=== PATIENT | male | born 1985 | race Caucasian/White ===

== ENCOUNTER 2021-07-31 12:15 | Outpatient (REF) | payer OTHER, SELFPAY ==
[2021-07-31 12:57] LABS: Influenza A PCR NEGATIVE (Negative); Influenza B PCR NEGATIVE (Negative); Resp Syncy Virus RNA Qual PCR NEGATIVE (Negative); SARS COV2 PCR INHOUSE POSITIVE (Negative)
== END 2021-07-31 12:16 | disposition home or self-care (01) ==
LOC: HO.LNP 12:15
PROVIDERS: Visit Provider Physician Assistant
DX: Z20.822 Contact with and (suspected) exposure to COVID-19 (principal)
CPT/HCPCS: 0241U

== ENCOUNTER 2022-10-07 12:18 | Emergency (ER) | payer OTHER, SELFPAY ==
[2022-10-07 12:58] VITALS: BP 136/88; PULSE 77; RESP 18; TEMP 36.6; O2SAT 99; BMI 31.0
--- NOTE | 2022-10-07 12:58 | ED_ITS ---
HPI - URI/Sore Throat General Chief Complaint: General Medical <KYLIE Lind Last Filed: 10/07/22 13:03> Stated Complaint: throat issue <KYLIE Lind Last Filed: 10/07/22 13:03> Time Seen by Provider: 10/07/22 14:02 <KYLIE Lind Last Filed: 10/07/22 13:03> Source: patient <KYLIE Morales Last Filed: 10/07/22 16:51> Mode of arrival: ambulatory <KYLIE Morales Last Filed: 10/07/22 16:51> Limitations: no limitations <KYLIE Morales Last Filed: 10/07/22 16:51> History of Present Illness HPI Narrative: Patient is a 36 year old assigned male at with no reported medical history presenting to the emergency department today with a lesion on his uvula. Patient states that 3 days ago he was diagnosed with strep throat and started on antibiotics. Patient states that he noticed today that he has a spot on his uvula. Patient states that he does have a history of intermittent cankersores. Patient denies any dizziness, lightheadedness, abdominal pain, nausea, vomiting, fever, chills, blurry vision, double vision, loss of vision, chest pain, difficulty breathing, shortness of breath, back pain, night sweats, pain with urination, increased urinary frequency, increased urinary urgency, blood in his urine or stool, syncope or a near syncopal episode, recent trauma or falls, bowel incontinence, bladder incontinence, bowel retention, bladder retention, or any other complaints at this time. <KYLIE Morales Last Filed: 10/07/22 16:51> Exacerbating factors: nothing <KYLIE Morales Last Filed: 10/07/22 16:51> Relieving factors: nothing <KYLIE Morales Last Filed: 10/07/22 16:51> Associated symptoms: denies other symptoms <KYLIE Morales Last Filed: 10/07/22 16:51> Treatments prior to arrival: none <KYLIE Morales Last Filed: 10/07/22 16:51> Related Data Home Medications: Home Medications Medication Instructions Recorded Confirmed No Known Home Meds 07/31/21 07/31/21 <KYLIE Lind - Last Filed: 10/07/22 13:03> Allergies/Adverse Reactions: Allergies Allergy/AdvReac Type Severity Reaction Status Date / Time No Known Allergies Allergy Verified 10/07/22 13:03 <KYLIE Lind - Last Filed: 10/07/22 13:03> Review of Systems Constitutional: Constitutional: Reports no additional constitutional complaints, Denies chills, Denies fever(s) and Denies night sweats <KYLIE Morales - Last Filed: 10/07/22 16:51> Eyes: Eyes: Reports no additional eye complaints, Denies blurry vision, Denies change in vision, Denies diplopia, Denies eye discharge, Denies loss of vision and Denies eye pain <KYLIE Morales - Last Filed: 10/07/22 16:51> ENT: Denies dizziness <KYLIE Morales - Last Filed: 10/07/22 16:51> Comments: spot on uvula <KYLIE Morales - Last Filed: 10/07/22 16:51> Cardiovascular: Cardiovascular: Reports no additional cardiovascular complaints, Denies chest pain, Denies lightheadedness, Denies Loss of Consci ousness and Denies dyspnea <KYLIE Morales Last Filed: 10/07/22 16:51> Respiratory: Respiratory: Reports no additional respiratory complaints and Denies dyspnea <KYLIE Morales - Last Filed: 10/07/22 16:51> Gastrointestinal: Gastrointestinal: Reports no additional gastrointestinal complaints, Denies abdominal pain, Denies melena, Denies hematochezia, Denies change in bowel habits and Denies change in stool character <KYLIE Morales - Last Filed: 10/07/22 16:51> Genitourinary: Genitourinary: Reports no additional male genitourinary complaints, Denies hematuria, Denies oliguria, Denies difficulty urinating, Denies dysuria, Denies urinary frequency, Denies urinary hesitancy, Denies urinary incontinence and Denies urinary urgency <KYLIE Morales Last Filed: 10/07/22 16:51> Musculoskeletal: Musculoskeletal: Reports no additional musculoskeletal complaints, Denies numbness and Denies tingling <KYLIE Morales - Last Filed: 10/07/22 16:51> Neurologic: Denies dizziness, Denies loss of vision, Denies numbness and Denies tingling <KYLIE Morales - Last Filed: 10/07/22 16:51> Psychiatric: Psychiatric: Reports no additional psychiatric complaints <KYLIE Morales - Last Filed: 10/07/22 16:51> Endocrine: Endocrine: Reports no additional endocrine complaints <KYLIE Morales - Last Filed: 10/07/22 16:51> Hematologic/Lymphatic: Hematologic/Lymphatic: Reports no additional hematologic/lymphatic complaints <KYLIE Morales - Last Filed: 10/07/22 16:51> Allergic/Immunologic: Allergic/Immunologic: Reports no additional allergic/immunologic complaints <KYLIE Morales - Last Filed: 10/07/22 16:51> PMFSH Past Medical History Attestation statement: The following information was validated with the patient. <KYLIE Morales - Last Filed: 10/07/22 16:51> Source: old records reviewed and nursing notes reviewed <KYLIE Morales - Last Filed: 10/07/22 16:51> Social History Social History: Social History Patient Tobacco Use Status: Never used Tobacco Advance Directives: No Advance Directives Information Provided: No <KYLIE Lind - Last Filed: 10/07/22 13:03> Physical Exam Vital Signs: Vital Signs: Last Vital Signs Temp 97.8 F 10/07/22 12:58 Pulse 77 10/07/22 12:58 Resp 18 10/07/22 12:58 BP 136/88 10/07/22 12:58 Pulse Ox 99 10/07/22 12:58 O2 Del Method 10/07/22 12:58 BMI result Body Mass Index 31.0 <KYLIE Lind - Last Filed: 10/07/22 13:03> Vital Signs: Last Vital Signs Temp 97.8 F 10/07/22 12:58 Pulse 77 10/07/22 12:58 Resp 18 10/07/22 12:58 BP 136/88 10/07/22 12:58 Pulse Ox 99 10/07/22 12:58 O2 Del Method 10/07/22 12:58 BMI result Body Mass Index 31.0 <KYLIE Morales - Last Filed: 10/07/22 16:51> Const: General: cooperative, no acute distress, alert and awake <KYLIE Morales - Last Filed: 10/07/22 16:51> Nutritional Appearance: well nourished <Katt Blank SC - Last Filed: 10/07/22 16:51> Orientation/consciousness: patient oriented x3 <Katt Blank SC - Last Filed: 10/07/22 16:51> Limitations: no limitations <Katt Blank SC - Last Filed: 10/07/22 16:51> HEENT: Head: Yes normal to inspection and Yes atraumatic <Katt Blank SC - Last Filed: 10/07/22 16:51> Ears: hearing grossly normal bilaterally and external ears normal <Katt Blank SC - Last Filed: 10/07/22 16:51> General nose exam: Normal external nose present, no nasal discharge noted and no epistaxis <Katt Blank SC - Last Filed: 10/07/22 16:51> Face and sinus: Yes normal facial exam, No abrasion and No laceration <Katt Blank SC - Last Filed: 10/07/22 16:51> Mouth: Normal oral and palatal mucosa present, no drooling and no muffled voice <Katt Blank SC - Last Filed: 10/07/22 16:51> Throat: Yes other (small lesion on uvula) <Katt Blank SC - Last Filed: 10/07/22 16:51> Eyes: General: appearance normal, both eyes and all related structures <KYLIE Morales - Last Filed: 10/07/22 16:51> Periorbital: periorbital findings normal <KYLIE Morales - Last Filed: 10/07/22 16:51> Eyelids: Yes eyelids normal <KYLIE Morales - Last Filed: 10/07/22 16:51> Conjunctivae: conjunctivae normal <Katt Blank SC - Last Filed: 10/07/22 16:51> Pupils: Equal, round and reactive pupils present <Katt Blank PA - Last Filed: 10/07/22 16:51> EOM: EOMs intact bilaterally <Katt Blank PA - Last Filed: 10/07/22 16:51> Neck: Neck: Yes normal visual inspection, Yes full ROM and Yes no lymphadenopathy <Katt Blank PA - Last Filed: 10/07/22 16:51> Chest: Chest palpation & inspection: normal inspection of the chest <Katt Blank PA - Last Filed: 10/07/22 16:51> Resp: Effort & Inspection: normal respiratory effort and able to speak in complete sentences <Katt Blank PA - Last Filed: 10/07/22 16:51> Auscultation: clear to auscultation bilaterally <Katt Blank SC - Last Filed: 10/07/22 16:51> Cardio: Rate: regular rate <Katt Blank PA - Last Filed: 10/07/22 16:51> Rhythm: regular rhythm <Katt Blank PA - Last Filed: 10/07/22 16:51> GI: Inspection: Yes normal to inspection <Katt Blank PA - Last Filed: 10/07/22 16:51> Palpation (GI): Soft to palpation, not firm, nontender and no guarding <Katt Blank PA - Last Filed: 10/07/22 16:51> Neuro: General: patient oriented x3 and moves all extremities <Katt Blank PA - Last Filed: 10/07/22 16:51> Cranial nerves: Yes Equal, round and reactive pupils present <Katt Blank PA - Last Filed: 10/07/22 16:51> Cognition (Neuro): normal cognition <Katt Blank PA - Last Filed: 10/07/22 16:51> Motor exam (neuro): 5/5 motor strength present throughout <Katt Blank PA - Last Filed: 10/07/22 16:51> Sensory Exam: Normal double simultaneous stimulation for sensation <Katt Blank PA - Last Filed: 10/07/22 16:51> Coordination: [id number] test normal <Katt Blank PA - Last Filed: 10/07/22 16:51> Extrem: General: Yes normal to inspection, Yes full ROM and Yes capillary refill normal <KYLIE Morales - Last Filed: 10/07/22 16:51> Psych: Appearance: grossly normal <KYLIE Morales Last Filed: 10/07/22 16:51> Mental Status: mental status grossly normal <KYLIE Morales Last Filed: 10/07/22 16:51> Affect: normal affect <KYLIE Morales Last Filed: 10/07/22 16:51> Attitude: cooperative <KYLIE Morales Last Filed: 10/07/22 16:51> Thought process: Normal thought process present <KYLIE Morlaes Last Filed: 10/07/22 16:51> Thought content: Normal thought content present <KYLIE Morales Last Filed: 10/07/22 16:51> Insight: Good insight present (Psych) <KYLIE Morales Last Filed: 10/07/22 16:51> Course Course Course Narrative: RME-12PM - 36yoM presenting to the ED with c/o of a sore throat x 3-4 days worse today currently on PCN prescribed by PCP x 3 days ago for bacterial pharyngitis confirm with strep swab. Although his uvula became more swollen and more painful therefore he called his PCP and they were concerned for possible abscess therefore they sent him here for further evaluation treatment. He denies any fevers, trouble swallowing or breathing, trismus, changes in voice, abdominal pain or any other symptoms complaints or concerns at this time. was also started on Augmentin for bacterial pharyngitis. Son is also being treated for bacterial pharyngitis. On exam it appears that the patient has a canker sore on the uvula. Tonsils/uvula with exudate. Uvula is midline. No trismus/drooling/stridor. Patient tolerating secretions well. Plan: Rapid strep obtained. Patient to be seen in [facility]. <KYLIE Lind - Last Filed: 10/07/22 13:03> Medications Administered Discontinued Medications Generic Name Dose Route Start Last Admin Trade Name Freq PRN Reason Stop Dose Admin Dexamethasone Sodium Phosphate 10 mg 10/07/22 14:14 10/07/22 14:19 Dexamethasone Sod Phosphate 10 Mg/Ml Vial PO 10/07/22 14:15 10 mg ONCE ONE Administration <KYLIE Lind - Last Filed: 10/07/22 13:03> Medications Administered Discontinued Medications Generic Name Dose Route Start Last Admin Trade Name Shayy PRN Reason Stop Dose Admin Dexamethasone Sodium Phosphate 10 mg 10/07/22 14:14 10/07/22 14:19 Dexamethasone Sod Phosphate 10 Mg/Ml Vial PO 10/07/22 14:15 10 mg ONCE ONE Administration <KYLIE Morales - Last Filed: 10/07/22 16:51> Medical Decision Making Medical Decision Making [facility] Narrative: Patient is a 36 year old assigned male at with no reported medical history presenting to the emergency department today with a lesion on his uvula. Patient's physical exam showed a small lesion on his uvula at the 5 o'clock pos ition. Patient's strep test was positive. I explained my physical exam findings as well as all test results to the patient. I answered all questions asked by the patient. Patient received PO Decadron. I stressed the importance of the patient taking his medication as prescribed. I stressed the importance of the patient following up with his primary care provider. I stressed the importance of the patient returning to the emergency department immediately if his symptoms were to worsen or if he were to develop any dizziness, shortness of breath, difficulty breathing, chest pain, blurry vision, loss of vision, nausea, vomiting, abdominal pain, fever, chills, back pain, or any other complaints. Patient verbalized agreement and understanding with this treatment plan and discharge. <KYLIE Morales - Last Filed: 10/07/22 16:51> Differential Diagnosis Differential Diagnoses: The differential diagnosis associated with the presentation includes <KYLIE Morales - Last Filed: 10/07/22 16:51> strep throat <KYLIE Morales - Last Filed: 10/07/22 16:51> Lab Data [facility] Lab Attestation statement: I reviewed the patient's lab results. <KYLIE Morales - Last Filed: 10/07/22 16:51> Labs: Lab Results 10/07/22 Range/Units 13:06 S. pyogenes GrpA JODI Positive A (Negative) <KYLIE Lind - Last Filed: 10/07/22 13:03> Lab Results 10/07/22 Range/Units 13:06 S. pyogenes GrpA JODI Positive A (Negative) <KYLIE Morales - Last Filed: 10/07/22 16:51> Discharge Plan Discharge Clinical Impression: Acute streptococcal pharyngitis <KYLIE Lind - Last Filed: 10/07/22 13:03> Patient Disposition: Home, Self-Care <KYLIE Lind - Last Filed: 10/07/22 13:03> Instructions: Strep Throat (ED) <KYLIE Lind - Last Filed: 10/07/22 13:03> Additional Instructions: Follow up with your primary care provider. Return to the emergency department immediately if your symptoms worsen or if you develop any dizziness, shortness of breath, difficulty breathing, chest pain, blurry vision, loss of vision, nausea, vomiting, abdominal pain, fever, chills, back pain, or any other complaints. <KYLIE Lind - Last Filed: 10/07/22 13:03> Prescriptions: No Action No Known Home Meds <KYLIE Lind - Last Filed: 10/07/22 13:03> Referrals: Donna Sosa NP [Primary Care Provider] - <KYLIE Lind - Last Filed: 10/07/22 13:03> Interventions: ED Discharge Assessment Last Done: 10/07/22 14:21 <KYLIE Lind - Last Filed: 10/07/22 13:03> Discharge Date/Time: 10/07/22 14:22 <KYLIE Lind - Last Filed: 10/07/22 13:03> Print Language: Turkish <KYLIE Lind - Last Filed: 10/07/22 13:03>
[2022-10-07 13:24] LABS: IDNOW Serial# 6674DD1D; Strep A Nucleic Acid Positive (Negative)
--- OUTSIDE RECORDS SUMMARY | 2022-10-07 13:55 | XMS_ITS | Continuity of Care Document ---
:1985 Author Organization [facility] Address [address] [place] [address]- Care Team Providers Name Role Phone Sheila Donna MCCALL Primary Care Physician Encounter [facility] [place] R [id number] Date(s): 08/03/20 - 08/10/20 [facility] [address] [place] [address]- Encounter Diagnosis Annual physical exam (Discharge Diagnosis) - 08/03/20 GERD (gastroesophageal reflux disease) (Discharge Diagnosis) - 08/03/20 Asthma (Discharge Diagnosis) - 08/04/20 Overweight (Discharge Diagnosis) - 08/05/20 Hepatic steatosis (Discharge Diagnosis) - 08/05/20 Recurrent oral ulcers (Discharge Diagnosis) - 08/08/20 Attending Physician: Not on Staff, Attending MD Allergies, Adverse Reactions, Alerts Substance Reaction Severity Status NKA Active Immunizations Given and Recorded Vaccine Date Status Refusal Reason Influenza Virus Vaccine (oldterm) 05/28/20 Recorded Influenza Virus Vaccine (oldterm)1 06/15/18 Given tetanus-diphtheria toxoids (Td) 07/28/17 Recorded Tet/Diphth/Acel, Pertussis (oldterm) 11/21/11 Given Not Given Vaccine Date Status Refusal Reason Influenza Virus Vaccine (oldterm) 08/10/19 Not Given Patient Refuses pneumococcal 23-valent vaccine 08/10/19 Not Given P atient Refuses 1Admin Note: declined Medications albuterol CFC free 90 mcg/inh inhalation aerosol 2, puffs, Inhalation, Every 4 hours, PRN, NEEDED FOR WHEEZING 15 MINUTES BEFORE EXERCISE, # 3 each, Refills 3, Tot. Refills 3, Maintenance, 12/10/19 10:52:00 EDT, Aerosol, Route to Pharmacy Electronically, [id number], [facility]... Start Date: 12/10/19 Status: OrderedMagic mouth wash Magic mouth wash, See Instructions, # 180 mL, Refills 0, Tot. Refills 0, Maintenance, swish and [id number] mouthwash Q4 hours as needed, 08/09/20 12:47:00 EST, mix 60ml liquid benadryl, 60ml lidocaine and 60ml maalox, Supply, 168, cm, 08/03/20 12:48:0... Start Date: 08/09/20 Status: Ordered Problem List Condition Effective Dates Status Health Status Informant [D]Functional heart murmur(Confirmed) Active Asthma(Confirmed) Active Back pain, chronic(Confirmed) Active GERD (gastroesophageal reflux Active disease)(Confirmed) Irritable bowel syndrome - mixed Active C/D(Confirmed) Sleep apnea, obstructive(Confirmed) Active Overweight(Confirmed) Active Recurrent oral ulcers(Confirmed) Active Hepatic steatosis(Confirmed) Active T12 compression fracture- Active TRAUMATIC(Confirmed) Diagnosis Diagnosis Type Effective Dates Health Clinical Infor mant Status Service Annual physical Discharge 08/03/20 exam Diagnosis GERD Discharge 08/03/20 (gastroesophageal Diagnosis reflux disease) Asthma Discharge 08/04/20 Diagnosis Overweight Discharge 08/05/20 Diagnosis Hepatic steatosis Discharge 08/05/20 Diagnosis Recurrent oral Discharge 08/08/20 ulcers Diagnosis Procedures Procedure Date Related Diagnosis Body Site Status Ultrasound scan of upper abdomen- 03/05/19 Completed Echogenic liver likely representing hepatic steatosis. Possible small or trace right pleural effusion.1 X-ray of lumbosacral spine- Unchanged 09/15/18 Completed chronic compression fracture at the thoracolumbar junction. Minimal degenerative changes. Polysomnogram- AHI:2.8; Baseline oxygen 01/05/18 Completed saturation during sleep: 94.6% Lowest oxygen saturation during sleep: 89.0%2 Echocardiogram- Overall left 08/11/09 Completed ventricular systolic function was normal. Left ventricular EF estimated in the range of 60-65%. There were no left ventricular regional wall motion abnormalities. Left ventricular diastolic function parameters were normal.3 1Echogenic liver likely representing hepatic steatosis. Possible small or trace right pleural effusion.2AHI:2.8; Baseline oxygen saturation during sleep: 94.6% Lowest oxygen saturation during sleep: 89.0%3Overall left ventricular systolic function was normal. Left ventricular EF estimated in the range of60-65%. There were no left ventricular regional wall motion abnormalities. Left ventricular diastolic function parameters were normal. Vital Signs Most recent to oldest [Reference Range]: 1 Height 168.00 cm (08/03/20 12:48 PM) Weight 98.3 kg (08/03/20 12:48 PM) Oxygen Saturation [94-100 %] 99 % (08/03/20 12:48 PM) Pulse Rate [55-90 bpm] 90 bpm (08/03/20 12:48 PM) Body Mass Index [18.5-24.99] 34.83 *>HHI* (08/03/20 12:48 PM) Blood Pressure [90-138/55-84 mm Hg] 122/70 mm Hg (08/03/20 12:48 PM) Temperature [96.8-100.4 DegF] 98.6 DegF (08/03/20 12:48 PM) Blood pressure sites Arm, left (08/03/20 12:48 PM) Social History Social History Type Response Smoking Status Never smoker; Tobacco user i n household: No entered on: 06/17/14 Sex
--- OUTSIDE RECORDS SUMMARY | 2022-10-07 13:55 | XMS_ITS | Continuity of Care Document ---
:1985 Author Organization [facility] Address [address] [place] [id number]- Care Team Providers Name Role Phone Sheila Donna MCCALL Primary Care Physician [place] [facility] [place]20 - 09/14/20 [facility] [address] [address] Attending Physician: Quyen Barrera Admitting Physician: Quyen Barrera Referring Physician: AdmtrQuyen Allergies, Adverse Reactions, Alerts Substance Reaction Severity [...] 10:52:00 EDT, Aerosol, Route to Pharmacy Electronically, [id number], [facility]... Start Date: 12/10/19 Status: Ordered Problem List Condition Effective Dates Status Health Status Informant [D]Functional heart murmur(Confirmed) Active Asthma(Confirmed) Active Back pain, chronic(Confirmed) Active GERD (gastroesophageal reflux Active disease)(Confirmed) Irritable bowel syndrome - mixed Active C/D(Confirmed) Sleep apnea, obstructive(Confirmed) Active Overweight(Confirmed) Active Recurrent oral ulcers(Confirmed) Active Hepatic steatosis(Confirmed) Active T12 compression fracture- Active TRAUMATIC(Confirmed) Social History Social History Type Response Smoking Status Never smoker; Tobacco user i n household: No entered on: 06/17/14 Sex
--- OUTSIDE RECORDS SUMMARY | 2022-10-07 13:55 | XMS_ITS | Continuity of Care Document ---
:1985 Author Organization [facility] Address [address] [place] [address]- Care Team Providers Name Role Phone Zander Muro MD Primary Care Physician Encounter [facility] [place] Date(s): 08/10/19 - 08/17/19 [facility] [address] [place] [address]- [facility] Encounter Diagnosis Arthritis of right knee (Discharge Diagnosis) - 08/10/19 Attending Physician: Zander Muro MD Allergies, Adverse Reactions, Alerts Substance Reaction Severity Status NKA Active Immunizations Given and Recorded Vaccine Date Status Refusal Reason Influenza Virus Vaccine (oldterm)1 06/15/18 Given Tet/Diphth/Acel, Pertussis (oldterm) 11/21/11 Given Not Given Vaccine Date Status Refusal Reason Influenza Virus Vaccine (oldterm) 08/10/19 Not Given Patient Refuses pneumococcal 23-valent vaccine 08/10/19 Not Given P atient Refuses 1Admin Note: declined Problem List Condition Effective Dates Status Health Status Informant [D]Functional heart murmur(Confirmed) Active Asthma(Confirmed) Active Back pain, chronic(Confirmed) Active Irritable bowel syndrome - mixed Active C/D(Confirmed) Plantar Wart(Confirmed) Active T12 compression fracture(Confirmed) Active Diagnosis Diagnosis Type Effective Dates Health Status Clinical In formant Service Arthritis of Discharge 08/10/19 right knee Diagnosis Vital Signs Most recent to oldest [Reference Range]: 1 Height 168.00 cm (08/10/19 10:47 AM) Weight 96.9 kg (08/10/19 10:47 AM) Oxygen Saturation [94-100 %] 99 % (08/10/19 10:47 AM) Pulse Rate [55-90 bpm] 70 bpm (08/10/19 10:47 AM) Body Mass Index [18.5-24.99] 34.33 *>HHI* (08/10/19 10:47 AM) Blood Pressure [90-138/55-84 mm Hg] 124/78 mm Hg (08/10/19 10:47 AM) Temperature [96.8-100.4 DegF] 98.1 DegF (08/10/19 10:47 AM) Mode of Delivery (Oxygen) Room air (08/10/19 10:47 AM) Blood pressure sites Arm, left (08/10/19 10:47 AM) Temperature Route Oral (08/10/19 10:47 AM) Weight Obtained Via Standing scale (08/10/19 10:47 AM) Social History Social History Type Response Smoking Status Never smoker entered on: 04/15/18 Sex
--- OUTSIDE RECORDS SUMMARY | 2022-10-07 13:55 | XMS_ITS | Continuity of Care Document ---
:1985 Author Organization [facility] Address [address] [place] [address]- Care Team Providers Name Role Phone Sheila Donna MCCALL Primary Care Physician Encounter [facility] [place] Date(s): 11/06/20 - 11/13/20 [facility] [address] [place] [address]- Encounter Diagnosis Allergic rhinitis (Discharge Diagnosis) - 11/06/20 Carpal tunnel syndrome, left (Discharge Diagnosis) - 11/06/20 Rectal pressure (Discharge Diagnosis) - 11/09/20 Attending Physician: Not on Staff, Attending MD [...] 10:52:00 EDT, Aerosol, Route to Pharmacy Electronically, [id number], [facility]... Start Date: 12/10/19 Status: OrderedMagic mouth wash Magic mouth wash, See Instructions, # 180 mL, Refills 0, Tot. Refills 0, Maintenance, swish and [id number] mouthwash Q4 hours as needed, 10/30/20 11:08:00 EDT, mix 60ml liquid benadryl, 60ml lidocaine and 60ml maalox, Supply, 168, cm, 10/06/20 9:28:00... Start Date: 10/30/20 Status: Ordered Problem List Condition Effective Dates Status Health Status Informant [D]Functional heart murmur(Confirmed) Active Allergic rhinitis(Confirmed) Active Asthma(Confirmed) Active Back pain, chronic(Confirmed) Active Carpal tunnel syndrome, Active left(Confirmed) GERD (gastroesophageal reflux Active disease)(Confirmed) Irritable bowel syndrome - mixed Active C/D(Confirmed) Neurogenic thoracic outlet syndrome of Active left brachial plexus(Confirmed) Sleep apnea, obstructive(Confirmed) Active Overweight(Confirmed) Active Recurrent oral ulcers(Confirmed) Active Hepatic steatosis(Confirmed) Active T12 compression fracture- Active TRAUMATIC(Confirmed) Diagnosis Diagnosis Type Effective Dates Health Status Clinical In formant Service Allergic Discharge 11/06/20 rhinitis Diagnosis Carpal tunnel Discharge 11/06/20 syndrome, left Diagnosis Rectal pressure Discharge 11/09/20 Diagnosis Vital Signs Most recent to oldest [Reference Range]: 1 Height 168.00 cm (11/06/20 11:02 AM) Social History Social History Type Response Smoking Status Never smoker; Tobacco user i n household: No entered on: 06/17/14 Sex
--- OUTSIDE RECORDS SUMMARY | 2022-10-07 13:55 | XMS_ITS | Continuity of Care Document ---
:1985 Author Organization [facility] Address [address] [place] [address]- Care Team Providers Name Role Phone Sheila STEFANY, Donna Boswell Primary Care Physician [place] [facility] [place] 08/28/20 - 10/04/20 [facility] [address] [place] [id number] Attending Physician: Neha Merchant MD Admitting Physician: Neha Merchant MD Referring Physician: Annmarie Paredes MD Allergies, Adverse Reactions, Alerts Substance Reaction [...] 10:52:00 EDT, Aerosol, Route to Pharmacy Electronically, [id number], [facility] Start Date: 12/10/19 Status: Ordered Problem [...]
--- OUTSIDE RECORDS SUMMARY | 2022-10-07 13:55 | XMS_ITS | Continuity of Care Document ---
:1985 Author Organization [facility] Address [address] [place] [address]- Care Team Providers Name Role Phone Sheila Donna MCCALL Primary Care Physician [place] [facility] [place](s[place] 08/25/20 - 09/24/20 [facility] [address] [place] [id number] Allergies, Adverse Reactions, Alerts Substance Reaction Severity [...] 10:52:00 EDT, Aerosol, Route to Pharmacy Electronically, [id number], [facility]... Start Date: 12/10/19 Status: Ordered Problem [...]
--- OUTSIDE RECORDS SUMMARY | 2022-10-07 13:55 | XMS_ITS | Continuity of Care Document ---
:1985 Author Organization [facility] Address [address] [place] [address]- Care Team Providers Name Role Phone Zander Muro MD Primary Care Physician Encounter [facility] Date(s): 08/10/19 - 08/17/[address] [address]- [facility] Attending Physician: Zander Muro MD Allergies, Adverse [...] Plantar Wart(Confirmed) Active T12 compression fracture(Confirmed) Active Social History Social History Type Response Smoking Status Never smoker entered on: 04/15/18 Sex
--- OUTSIDE RECORDS SUMMARY | 2022-10-07 13:55 | XMS_ITS | Continuity of Care Document ---
:1985 Author Organization [facility] Address [address] [place] [address]- Care Team Providers Name Role Phone Sheila Donna MCCALL Primary Care Physician [place] [facility] [place]20 - 09/24/20 [facility] [address] [place] [id number] Allergies, Adverse Reactions, Alerts Substance Reaction Severity [...] 10:52:00 EDT, Aerosol, Route to Pharmacy Electronically, [id number], [facility]... Start Date: 12/10/19 Status: Ordered Problem [...]
--- OUTSIDE RECORDS SUMMARY | 2022-10-07 13:55 | XMS_ITS | Continuity of Care Document ---
:1985 Author Organization [facility] Address [address] [place] [address]- Care Team Providers Name Role Phone Sheila Donna MCCALL Primary Care Physician [place] [facility] [place] 09/28/20 [facility] [address] [place] [id number] Allergies, Adverse Reactions, Alerts Substance Reaction [...] 10:52:00 EDT, Aerosol, Route to Pharmacy Electronically, [id number], [facility]... Start Date: 12/10/19 Status: Ordered Problem [...]
--- OUTSIDE RECORDS SUMMARY | 2022-10-07 13:55 | XMS_ITS | Continuity of Care Document ---
:1985 Author Organization [facility] Address [address] [place] [address]- Care Team Providers Name Role Phone Sheila Donna MCCALL Primary Care Physician [place] [facility] [place] 11/06/20 - 12/06/20 [facility] [address] [place] [address]- Attending Physician: Quyen Barrera Admitting Physician: Admtr, Quyen Referring Physician: Admtr, Ar8 Allergies, Adverse Reactions, Alerts Substance Reaction Severity [...] 10:52:00 EDT, Aerosol, Route to Pharmacy Electronically, [id number], [facility]... Start Date: 12/10/19 Status: OrderedMagic mouth wash Magic mouth wash, See Instructions, # 180 mL, Refills 3, Tot. Refills 3, Maintenance, swish and [id number] mouthwash Q4 hours as needed, 11/20/20 12:57:00 EDT, mix 60ml liquid benadryl, 60ml lidocaine and 60ml maalox, Supply, 168, cm, 11/06/20 11:02:0... Start Date: 11/20/20 Status: Ordered Problem List Condition Effective Dates [...]
--- OUTSIDE RECORDS SUMMARY | 2022-10-07 13:55 | XMS_ITS | Continuity of Care Document ---
:1985 Author Organization [facility] [place] Address [address] [place] [address]- Care Team Providers Name Role Phone Donna Sosa NP Primary Care Physician Encounter [facility] [place] Date(s): 05/09/21 - 09/06/21 [facility] [place] [address] [place] [address]- Encounter Diagnosis Annual physical exam (Discharge Diagnosis) - 08/06/21 Overweight (Discharge Diagnosis) - 08/06/21 Sleep apnea, obstructive (Discharge Diagnosis) - 08/06/21 GERD (gastroesophageal reflux disease) (Discharge Diagnosis) - 08/06/21 Hepatic steatosis (Discharge Diagnosis) - 08/06/21 Recurrent oral herpes simplex (Discharge Diagnosis) - 08/06/21 Asthma (Discharge Diagnosis) - 08/06/21 Attending Physician: Donna Sosa NP Allergies, Adverse Reactions, Alerts No Known Allergies Immunizations Given and Recorded Vaccine Date Status Refusal Reason SARS-CoV-2 (COVID-19) mRNA-1273 vaccine 03/15/21 Recorded SARS-CoV-2 (COVID-19) mRNA-1273 vaccine 02/15/21 Recorded Influenza Virus Vaccine (oldterm) 05/28/20 Recorded Influenza Virus Vaccine (oldterm)1 06/15/18 Given influenza virus vaccine, inactivated 05/10/20 Recorded tetanus-diphtheria toxoids (Td) 07/28/17 Recorded Tet/Diphth/Acel, Pertussis [...] 10:52:00 EDT, Aerosol, Route to Pharmacy Electronically, [id number], [facility]... Start Date: 12/10/19 Status: OrderedMagic mouth wash Magic mouth wash, See Instructions, # 180 mL, Refills 3, Tot. Refills 3, Maintenance, swish and [id number] mouthwash Q4 hours as needed, 11/20/20 12:57:00 [...] apnea, obstructive(Confirmed) Active Overweight(Confirmed) Active Recurrent oral herpes Active simplex(Confirmed) Hepatic steatosis(Confirmed) Active T12 compression fracture- Active TRAUMATIC(Confirmed) Diagnosis Diagnosis Type Effective Dates Health Clinical Infor mant Status Service Annual physical Discharge 08/06/21 exam Diagnosis Overweight Discharge 08/06/21 Diagnosis Sleep apnea, Discharge 08/06/21 obstructive Diagnosis GERD Discharge 08/06/21 (gastroesophageal Diagnosis reflux disease) Hepatic steatosis Discharge 08/06/21 Diagnosis Recurrent oral Discharge 08/06/21 herpes simplex Diagnosis Asthma Discharge 08/06/21 Diagnosis Social History Social History Type Response Smoking Status Never smoker; Tobacco user i n household: No entered on: 06/17/14 Sex
--- OUTSIDE RECORDS SUMMARY | 2022-10-07 13:55 | XMS_ITS | Continuity of Care Document ---
:1985 Author Organization [facility] Address [address] [place] [address]- Care Team Providers Name Role Phone Zander Muro MD Primary Care Physician Encounter 10/07/19 - 10/14/[address] [address]- [facility] Attending Physician: Not on Staff, Attending MD Referring Physician: Not on Staff, Referring MD Allergies, Adverse Reactions, Alerts Substance Reaction [...]
--- OUTSIDE RECORDS SUMMARY | 2022-10-07 13:55 | XMS_ITS | Continuity of Care Document ---
:1985 Author Organization [facility] [place] Address [address] [place] [address]- Care Team Providers Name Role Phone Sheila SENIOR PENSIONS ADMINISTRATORDonna Primary Care Physician Encounter [facility] [place] Date(s): 01/17/22 - 02/16/22 [facility] [place] [address] [place] [address]- Allergies, Adverse Reactions, Alerts No Known Allergies [...] 10:52:00 EDT, Aerosol, Route to Pharmacy Electronically, [id number], [facility]... Start Date: 12/10/19 Status: OrderedMagic mouth wash Magic mouth wash, See Instructions, # 180 mL, Refills 3, Tot. Refills 3, Maintenance, swish and [id number] mouthwash Q4 hours as needed, 11/20/20 12:57:00 EDT, mix 60ml liquid benadryl, 60ml lidocaine and 60ml maalox, Supply, 168, cm, 11/06/20 11:02:0... Start Date: 11/20/20 Status: Orderedomeprazole 40 mg oral enteric coated capsule 1 capsule = 40 mg, By Mouth, Daily, # 30 capsule, 3 Refills, Maintenance, 01/21/22 11:06:00 EDT, EC Capsule, [id number], Partial fill upon patient request if the prescription is for a schedule II opioid drug., 168, cm, 01/21/22 10:49:00 EDT, H... 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
--- OUTSIDE RECORDS SUMMARY | 2022-10-07 13:55 | XMS_ITS | Continuity of Care Document ---
:1985 Author Organization [facility] Address [address] [place] [address]- Care Team Providers Name Role Phone Sheila Donna MCCALL Primary Care Physician Encounter [facility] Date(s): 08/04/20 - 09/03/20 [facility] [address] [place] [address]- Allergies, Adverse Reactions, Alerts Substance Reaction Severity [...] 10:52:00 EDT, Aerosol, Route to Pharmacy Electronically, [id number], [facility]... Start Date: 12/10/19 Status: OrderedValtrex 1 gm oral tablet 1 tablet = 1 Gm, By Mouth, 2 times a day, for 7 days, # 14 tablet, 0 Refills, Acute 09/07/20 9:25:00EST, 08/31/20 9:25:00 EST, Tablet, [id number], 168, cm, 02/04/21 8:43:00 EST, Height Start Date: 08/31/20 Stop Date: 09/07/20 Status: Ordered Problem List Condition Effective Dates [...]
--- OUTSIDE RECORDS SUMMARY | 2022-10-07 13:55 | XMS_ITS | Continuity of Care Document ---
:1985 Author Organization [facility] Address [address] [place] [address]- Care Team Providers Name Role Phone Donna Sosa NP Primary Care Physician En[place] [facility] [place]s): 08/25/20 - 09/01/20 [facility] [address] [place] [id number] Attending Physician: Annmarie Paredes MD Admitting Physician: Annmarie Paredes MD Referring Physician: Donna Sosa NP Allergies, Adverse Reactions, Alerts Substance Reaction Severity [...] 10:52:00 EDT, Aerosol, Route to Pharmacy Electronically, [id number], [facility]... Start Date: 12/10/19 Status: OrderedValtrex 1 gm oral tablet 1 tablet = 1 Gm, By Mouth, 2 times a day, for 7 days, # 14 tablet, 0 Refills, Acute 09/07/20 9:25:00EST, 08/31/20 9:25:00 EST, Tablet, [id number], 168, cm, 08/31/20 8:43:00 EST, Height Start Date: 08/31/20 Stop [...]
--- OUTSIDE RECORDS SUMMARY | 2022-10-07 13:55 | XMS_ITS | Continuity of Care Document ---
:1985 Author Organization [facility] Address [address] [place] [address]- Care Team Providers Name Role Phone Zander Muro MD Primary Care Physician Encounter [facility] Date(s): 07/13/19 - 07/23/19 [facility] [address] [place] [address]- [facility] Attending Physician: Quyen Barrera Admitting Physician: Quyen Barrera Referring Physician: AdmtrQuyen Allergies, Adverse Reactions, Alerts Substance Reaction Severity Status NKA Active Immunizations Given and Recorded Vaccine Date Status Refusal Reason Influenza Virus Vaccine (oldterm)1 06/15/18 Given Tet/Diphth/Acel, Pertussis (oldterm) 11/21/11 Given 1Admin Note: declined Problem List Condition Effective Dates Status Health Status Informant [D]Functional heart murmur(Confirmed) Active Asthma(Confirmed) Active Back pain, chronic(Confirmed) Active Irritable bowel syndrome - mixed Active C/D(Confirmed) Plantar Wart(Confirmed) Active T12 compression fracture(Confirmed) Active Social History Social History Type Response Smoking Status Never smoker entered on: 04/15/18 Sex
--- OUTSIDE RECORDS SUMMARY | 2022-10-07 13:55 | XMS_ITS | Continuity of Care Document ---
:1985 Author Organization [facility] Address [address] [place] [address]- Care Team Providers Name Role Phone Bhaskar VILA, Zander Santana Primary Care Physician Encounter [facility] Date(s): 07/13/19 - 07/20/19 [facility] [address] [place] [address]- [facility] Encounter Diagnosis Great toe pain (Discharge Diagnosis) - 07/13/19 Right knee pain (Discharge Diagnosis) - 07/13/19 Attending Physician: Misha Ortega MD Allergies, Adverse Reactions, Alerts Substance Reaction Severity Status NKA Active Immunizations Given and Recorded Vaccine Date Status Refusal Reason Influenza Virus Vaccine (oldterm)1 06/15/18 Given Tet/Diphth/Acel, Pertussis (oldterm) 11/21/11 Given 1Admin Note: declined Medications No Known Medications Problem List Condition Effective Dates Status Health Status Informant [D]Functional heart murmur(Confirmed) Active Asthma(Confirmed) Active Back pain, chronic(Confirmed) Active Irritable bowel syndrome - mixed Active C/D(Confirmed) Plantar Wart(Confirmed) Active T12 compression fracture(Confirmed) Active Diagnosis Diagnosis Type Effective Dates Health Status Clinical In formant Service Great toe pain Discharge 07/13/19 Diagnosis Right knee pain Discharge 07/13/19 Diagnosis Vital Signs Most recent to oldest [Reference Range]: 1 Height 168.00 cm (07/13/19 11:38 AM) Weight 97 kg (07/13/19 11:38 AM) Oxygen Saturation [94-100 %] 98 % (07/13/19 11:38 AM) Pulse Rate [55-90 bpm] 80 bpm (07/13/19 11:38 AM) Body Mass Index [18.5-24.99] 34.37 *>HHI* (07/13/19 11:38 AM) Blood Pressure [90-138/55-84 mm Hg] 122/68 mm Hg (07/13/19 11:38 AM) Respiratory Rate [16-30 br/min] 18 br/min (07/13/19 11:38 AM) Temperature [96.8-100.4 DegF] 98.0 DegF (07/13/19 11:38 AM) Mode of Delivery (Oxygen) Room air (07/13/19 11:38 AM) Blood pressure sites Arm, left (07/13/19 11:38 AM) Temperature Route Temporal (07/13/19 11:38 AM) Weight Obtained Via Standing scale (07/13/19 11:38 AM) Social History Social History Type Response Smoking Status Never smoker entered on: 04/15/18 Sex
--- OUTSIDE RECORDS SUMMARY | 2022-10-07 13:55 | XMS_ITS | Continuity of Care Document ---
:1985 Author Organization [facility] Address [address] [place] [address]- Care Team Providers Name Role Phone Sheila Donna MCCALL Primary Care Physician Encounter [facility] [place] Date(s): 10/17/20 - 11/16/20 [facility] [address] [place] [address] Allergies, Adverse Reactions, Alerts Substance Reaction Severity [...] 10:52:00 EDT, Aerosol, Route to Pharmacy Electronically, [id number], [facility]... Start Date: 12/10/19 Status: OrderedMagic mouth wash Magic mouth wash, See Instructions, # 180 mL, Refills 0, Tot. Refills 0, Maintenance, swish and [id number] mouthwash Q4 hours as needed, 10/30/20 11:08:00 [...]
--- OUTSIDE RECORDS SUMMARY | 2022-10-07 13:55 | XMS_ITS | Continuity of Care Document ---
:1985 Author Organization [facility] Address [address] [place] [address]- Care Team Providers Name Role Phone Sheila Donna MCCALL Primary Care Physician Encounter [facility] Date(s): 10/27/20 - 11/26/20 [facility] [address] [place] [address]- Allergies, Adverse Reactions, Alerts Substance Reaction Severity [...] 10:52:00 EDT, Aerosol, Route to Pharmacy Electronically, [id number], [facility]... Start Date: 12/10/19 Status: OrderedMagic mouth wash Magic mouth wash, See Instructions, # 180 mL, Refills 3, Tot. Refills 3, Maintenance, swish and retq42fo mouthwash Q4 hours as needed, 11/20/20 12:57:00 [...]
--- OUTSIDE RECORDS SUMMARY | 2022-10-07 13:55 | XMS_ITS | Continuity of Care Document ---
:[address] [facility] Address [address] [place] [address]- Care Team Providers Name Role Phone Sheila LYE MACHINE OPERATORDonna Primary Care Physician Encounter [facility] [place] Date(s): 01/21/22 - 01/28/22 [facility] [address] [place] [address]- Encounter Diagnosis Palpitations (Discharge Diagnosis) - 01/21/22 GERD (gastroesophageal reflux disease) (Discharge Diagnosis) - 01/21/22 Neurogenic thoracic outlet syndrome of left brachial plexus (Discharge Diagnosis) - 01/21/22 Attending Physician: Maricel Camejo Allergies, Adverse Reactions, Alerts No Known Allergies [...] 10:52:00 EDT, Aerosol, Route to Pharmacy Electronically, [id number], [facility]... Start Date: 12/10/19 Status: OrderedMagic mouth wash Magic mouth wash, See Instructions, # 180 mL, Refills 3, Tot. Refills 3, Maintenance, swish and [id number] mouthwash Q4 hours as needed, 11/20/20 12:57:00 EDT, mix 60ml liquid benadryl, 60ml lidocaine and 60ml maalox, Supply, 168, cm, 11/06/20 11:02:0... Start Date: 11/20/20 Status: Orderedomeprazole 40 mg oral enteric coated capsule 1 capsule = 40 mg, By Mouth, Daily, # 30 capsule, 3 Refills, Maintenance, 01/21/22 11:06:00 EDT, EC Capsule, [id number], Partial fill upon patient request if the [...] Dates Health Clinical Infor mant Status Service Palpitations Discharge 01/21/22 Diagnosis GERD Discharge 01/21/22 (gastroesophageal Diagnosis reflux disease) Neurogenic thoracic Discharge 01/21/22 outlet syndrome of Diagnosis left brachial plexus Vital Signs Most recent to oldest [Reference Range]: 1 Height 168.00 cm (01/21/22 10:49 AM) Weight 98.7 kg (01/21/22 10:49 AM) Oxygen Saturation [94-100 %] 98 % (01/21/22 10:49 AM) Pulse Rate [55-90 bpm] 69 bpm (01/21/22 10:49 AM) Body Mass Index [18.5-24.99] 34.97 *>HHI* (01/21/22 10:49 AM) Blood Pressure [90-138/55-84 mm Hg] 123/73 mm Hg (01/21/22 10:49 AM) Blood pressure sites Arm, left (01/21/22 10:49 AM) Temperature Route Temporal (01/21/22 10:49 AM) Weight Obtained Via Standing scale (01/21/22 10:49 AM) Social History Social History Type Response Smoking Status Never smoker; Tobacco user i n household: No entered on: 06/17/14 Sex
--- OUTSIDE RECORDS SUMMARY | 2022-10-07 13:55 | XMS_ITS | Continuity of Care Document ---
:1985 Author Organization [facility] Adult Address [address] [place] [address]- Care Team Providers Name Role Phone Sheila Donna MCCALL Primary Care Physician Encounter [facility] Date(s): 06/15/20 - 07/15/20 [facility] [address] [place] [address]- Allergies, Adverse Reactions, Alerts Substance Reaction Severity [...] 10:52:00 EDT, Aerosol, Route to Pharmacy Electronically, [id number], [facility]... Start Date: 12/10/19 Status: Ordered Problem List Condition Effective Dates Status Health Status Informant [D]Functional heart murmur(Confirmed) Active Asthma(Confirmed) Active Back pain, chronic(Confirmed) Active Irritable bowel syndrome - mixed Active C/D(Confirmed) Plantar Wart(Confirmed) Active T12 compression fracture(Confirmed) Active Social History Social History Type Response Smoking Status Never smoker entered on: 04/15/18 Sex
--- OUTSIDE RECORDS SUMMARY | 2022-10-07 13:55 | XMS_ITS | Continuity of Care Document ---
:1985 Author Organization [facility] Address [address] [place] [address]- Care Team Providers Name Role Phone Bhaskar VILA, Zander Santana Primary Care Physician Encounter [facility] [place] Date(s): 05/08/20 - 05/15/20 [facility] [address] [place] [address]- [facility] Attending Physician: Glen VILA, Sherif Aguilar Allergies, Adverse Reactions, Alerts Substance Reaction Severity [...] 10:52:00 EDT, Aerosol, Route to Pharmacy Electronically, [id number], [facility]... Start Date: 12/10/19 Status: Ordered Problem List Condition Effective Dates Status Health Status Informant [D]Functional heart murmur(Confirmed) Active Asthma(Confirmed) Active Back pain, chronic(Confirmed) Active Irritable bowel syndrome - mixed Active C/D(Confirmed) Plantar Wart(Confirmed) Active T12 compression fracture(Confirmed) Active Vital Signs Most recent to oldest [Reference Range]: 1 Height 168.00 cm (05/08/20 2:34 PM) Social History Social History Type Response Smoking Status Never smoker entered on: 04/15/18 Sex
--- OUTSIDE RECORDS SUMMARY | 2022-10-07 13:56 | XMS_ITS | Continuity of Care Document ---
:1985 Author Organization [facility] Address [address] [place] [address]- Care Team Providers Name Role Phone Sheila Donna MCCALL Primary Care Physician Encounter [facility] [place] Date(s): 07/24/21 - 08/23/21 [facility] [address] [place] [address]- Allergies, Adverse Reactions, Alerts No Known Allergies [...] 10:52:00 EDT, Aerosol, Route to Pharmacy Electronically, [id number], [facility]... Start Date: 12/10/19 Status: OrderedMagic mouth wash Magic mouth wash, See Instructions, # 180 mL, Refills 3, Tot. Refills 3, Maintenance, swish and [id number] mouthwash Q4 hours as needed, 11/20/20 12:57:00 [...]
--- OUTSIDE RECORDS SUMMARY | 2022-10-07 13:56 | XMS_ITS | Continuity of Care Document ---
:1985 Author Organization [facility] Address [address] [place] [address]- Care Team Providers Name Role Phone Sheila Donna MCCALL Primary Care Physician Encounter [facility] Date(s): 10/11/20 - 11/10/20 [facility] [address] [place] [id number] Allergies, Adverse Reactions, Alerts Substance Reaction [...] 10:52:00 EDT, Aerosol, Route to Pharmacy Electronically, [id number], [facility]... Start Date: 12/10/19 Status: OrderedMagic mouth wash Magic mouth wash, See Instructions, # 180 mL, Refills 0, Tot. Refills 0, Maintenance, swish and [id number] mouthwash Q4 hours as needed, 10/30/20 11:08:00 [...]
--- OUTSIDE RECORDS SUMMARY | 2022-10-07 13:56 | XMS_ITS | Continuity of Care Document ---
:1985 Author Organization [facility] Address [address] [place] [address]- Care Team Providers Name Role Phone Zander Muro MD Primary Care Physician Encounter [facility] [place] Date(s): 12/06/19 - 12/13/19 [facility] [address] [place] [address]- [facility] Encounter Diagnosis Exposure to COVID-19 virus (Discharge Diagnosis) - 12/06/19 Attending Physician: Zander Muro MD Allergies, Adverse [...] 10:52:00 EDT, Aerosol, Route to Pharmacy Electronically, [id number], [facility]... Start Date: 12/10/19 Status: Ordered Problem List Condition Effective Dates Status Health Status Informant [D]Functional heart murmur(Confirmed) Active Asthma(Confirmed) Active Back pain, chronic(Confirmed) Active Irritable bowel syndrome - mixed Active C/D(Confirmed) Plantar Wart(Confirmed) Active T12 compression fracture(Confirmed) Active Diagnosis Diagnosis Type Effective Dates Health Status Clinical In formant Service Exposure to Discharge 12/06/19 COVID-19 virus Diagnosis Social History Social History Type Response Smoking Status Never smoker entered on: 04/15/18 Sex
--- OUTSIDE RECORDS SUMMARY | 2022-10-07 13:56 | XMS_ITS | Continuity of Care Document ---
:1985 Author Organization [facility] Address [address] [place] [address]- Care Team Providers Name Role Phone Donna Sosa NP Primary Care Physician [place] [facility] [place] 03[place]/21 [facility] [address] [place] [address]- Attending Physician: Nicanor Sagastume MD Admitting Physician: Nicanor Sagastume MD Referring Physician: Donna Sosa NP Allergies, Adverse Reactions, Alerts Substance Reaction Severity Status NKA Active Immunizations Given and Recorded Vaccine Date Status Refusal Reason SARS-CoV-2 (COVID-19) mRNA-1273 vaccine 02/15/21 Recorded Influenza [...] 10:52:00 EDT, Aerosol, Route to Pharmacy Electronically, [id number], [facility] Start Date: 12/10/19 Status: OrderedMagic mouth wash Magic mouth wash, See Instructions, # 180 mL, Refills 3, Tot. Refills 3, Maintenance, swish and [id number] mouthwash Q4 hours as needed, 11/20/20 12:57:00 [...]
--- OUTSIDE RECORDS SUMMARY | 2022-10-07 13:56 | XMS_ITS | Continuity of Care Document ---
:1985 Author Organization [facility] Address [address] [place] [address]- Care Team Providers Name Role Phone Donna Sosa NP Primary Care Physician [place] [facility] [place] 04/06/21 - 04/13/21 [facility] [address] [place] [address]- Attending Physician: Nicanor Sagastume MD Admitting Physician: [...] 10:52:00 EDT, Aerosol, Route to Pharmacy Electronically, [id number], [facility] Start Date: 12/10/19 Status: OrderedMagic mouth wash Magic mouth wash, See Instructions, # 180 mL, Refills 3, Tot. Refills 3, Maintenance, swish and [id number] mouthwash Q4 hours as needed, 11/20/20 12:57:00 [...] steatosis(Confirmed) Active T12 compression fracture- Active TRAUMATIC(Confirmed) Procedures Procedure Date Related Diagnosis Body Site Status Vasectomy 04/06/21 Completed Social History Social History Type Response Smoking Status Never smoker; Tobacco user i n household: No entered on: 06/17/14 Sex
--- OUTSIDE RECORDS SUMMARY | 2022-10-07 13:56 | XMS_ITS | Continuity of Care Document ---
:1985 Author Organization [facility] Address [address] [place] [address]- Care Team Providers Name Role Phone Sheila Donna MCCALL Primary Care Physician Encounter [facility] Date(s): 08/09/20 - 09/08/20 [facility] [address] [place] [address]- Allergies, Adverse Reactions, Alerts Substance Reaction Severity [...] 10:52:00 EDT, Aerosol, Route to Pharmacy Electronically, [id number], [facility]... Start Date: 12/10/19 Status: Ordered Problem [...]
--- OUTSIDE RECORDS SUMMARY | 2022-10-07 13:56 | XMS_ITS | Continuity of Care Document ---
:1985 Author Organization [facility] Address [address] [place] [address]- Care Team Providers Name Role Phone Sheila Donna MCCALL Primary Care Physician Encounter [place] Date(s): 10/17/20 - 11/18/20 [facility] [address] [place] [id number] Attending Physician: Annmarie Paredes MD Admitting Physician: Annmarie Paredes MD Allergies, Adverse Reactions, [...] 10:52:00 EDT, Aerosol, Route to Pharmacy Electronically, [id number], [facility]... Start Date: 12/10/19 Status: OrderedMagic mouth wash Magic mouth wash, See Instructions, # 180 mL, Refills 0, Tot. Refills 0, Maintenance, swish and [id number] mouthwash Q4 hours as needed, 10/30/20 11:08:00 [...]
--- OUTSIDE RECORDS SUMMARY | 2022-10-07 13:56 | XMS_ITS | Continuity of Care Document ---
:1985 Author Organization [facility] [place] Address [address] [place] [address]- Care Team Providers Name Role Phone Sheila Donna MCCALL Primary Care Physician Encounter [facility] [place] Date(s): 01/21/22 - 02/20/22 [facility] [place] [address] [place] [address]- Attending Physician: Admtr, Quyen Admitting Physician: Admtr, Quyen Referring Physician: Admtr, Ar8 Allergies, Adverse Reactions, Alerts No Known Allergies [...] 10:52:00 EDT, Aerosol, Route to Pharmacy Electronically, [id number], [facility]... Start Date: 12/10/19 Status: OrderedMagic mouth wash Magic mouth wash, See Instructions, # 180 mL, Refills 3, Tot. Refills 3, Maintenance, swish and [id number] mouthwash Q4 hours as needed, 11/20/20 12:57:00 EDT, mix 60ml liquid benadryl, 60ml lidocaine and 60ml maalox, Supply, 168, cm, 11/06/20 11:02:0... Start Date: 11/20/20 Status: Orderedomeprazole 40 mg oral enteric coated capsule 1 capsule = 40 mg, By Mouth, Daily, # 30 capsule, 3 Refills, Maintenance, 01/21/22 11:06:00 EDT, EC Capsule, [facility]/pharmacy #[id number], Partial fill upon patient request if the [...]
--- OUTSIDE RECORDS SUMMARY | 2022-10-07 13:56 | XMS_ITS | Continuity of Care Document ---
:1985 Author Organization [facility] Address [address] [place] [address]- Care Team Providers Name Role Phone Donna Sosa NP Primary Care Physician [place] [facility] [place]): 08/31/20 - 09/07/20 [facility] [address] [place] [address]- Encounter Diagnosis Herpes labialis (Discharge Diagnosis) - 08/31/20 Attending Physician: Donna Sosa NP Allergies, Adverse [...] 10:52:00 EDT, Aerosol, Route to Pharmacy Electronically, [id number], [facility]... Start Date: 12/10/19 Status: Ordered Problem [...] Dates Health Status Clinical In formant Service Herpes labialis Discharge 08/31/20 Diagnosis Vital Signs Most recent to oldest [Reference Range]: 1 Height 168.00 cm (08/31/20 8:43 AM) Social History Social History Type Response Smoking Status Never smoker; Tobacco user i n household: No entered on: 06/17/14 Sex
--- OUTSIDE RECORDS SUMMARY | 2022-10-07 13:56 | XMS_ITS | Continuity of Care Document ---
:1985 Author Organization [facility] Address [address] [place] [address]- Care Team Providers Name Role Phone Sheila Donna MCCALL Primary Care Physician En[place] [facility] [place]s): 10/19/20 - 11/18/20 [facility] [address] [place] [id number] Attending Physician: Quyen Barrera Admitting Physician: AdmQuyen young Referring Physician: AdmtrQuyen Allergies, Adverse Reactions, Alerts [...] 10:52:00 EDT, Aerosol, Route to Pharmacy Electronically, [id number], [facility]... Start Date: 12/10/19 Status: OrderedMagic mouth wash Magic mouth wash, See Instructions, # 180 mL, Refills 0, Tot. Refills 0, Maintenance, swish and [id number] mouthwash Q4 hours as needed, 10/30/20 11:08:00 [...]
--- OUTSIDE RECORDS SUMMARY | 2022-10-07 13:56 | XMS_ITS | Continuity of Care Document ---
:1985 Author Organization [facility] [place] Address [address] [place] [address]- Care Team Providers Name Role Phone Sheila Donna MCCALL Primary Care Physician Encounter [facility] [place] Date(s): 08/07/21 - 09/06/21 [facility] [place] [address] [place] [address]- Attending Physician: Admtr, Jay8 Admitting Physician: Admtr, Quyen Referring Physician: Admtr, [...] 10:52:00 EDT, Aerosol, Route to Pharmacy Electronically, [id number], [facility]... Start Date: 12/10/19 Status: OrderedMagic mouth wash Magic mouth wash, See Instructions, # 180 mL, Refills 3, Tot. Refills 3, Maintenance, swish and [id number] mouthwash Q4 hours as needed, 11/20/20 12:57:00 [...]
--- OUTSIDE RECORDS SUMMARY | 2022-10-07 13:56 | XMS_ITS | Continuity of Care Document ---
:1985 Author Organization [facility] Address [address] [place] [address]- Care Team Providers Name Role Phone Sheila Donna MCCALL Primary Care Physician Encounter [facility] Date(s): 06/15/20 - 07/15/20 [facility] [address] [place] [address]- Allergies, Adverse Reactions, Alerts Substance Reaction Severity [...] 10:52:00 EDT, Aerosol, Route to Pharmacy Electronically, [id number], [facility]... Start Date: 12/10/19 Status: Ordered Problem List Condition Effective Dates Status Health Status Informant [D]Functional heart murmur(Confirmed) Active Asthma(Confirmed) Active Back pain, chronic(Confirmed) Active Irritable bowel syndrome - mixed Active C/D(Confirmed) Plantar Wart(Confirmed) Active T12 compression fracture(Confirmed) Active Social History Social History Type Response Smoking Status Never smoker entered on: 04/15/18 Sex
--- OUTSIDE RECORDS SUMMARY | 2022-10-07 13:56 | XMS_ITS | Continuity of Care Document ---
:1985 Author Organization [facility] Address [address] [place] [address]- Care Team Providers Name Role Phone Donna Sosa NP Primary Care Physician En[place] [facility] [place] Date(s): 02/19/21 - 02/26/21 [facility] [address] [place] [address]- Attending Physician: Nicanor Sagastume MD Admitting Physician: [...] 10:52:00 EDT, Aerosol, Route to Pharmacy Electronically, [id number], [facility]... Start Date: 12/10/19 Status: OrderedMagic mouth wash Magic mouth wash, See Instructions, # 180 mL, Refills 3, Tot. Refills 3, Maintenance, swish and [id number] mouthwash Q4 hours as needed, 11/20/20 12:57:00 [...] steatosis(Confirmed) Active T12 compression fracture- Active TRAUMATIC(Confirmed) Vital Signs Most recent to oldest [Reference Range]: 1 Height 168.00 cm (02/19/21 3:41 PM) Weight 90.26 kg (02/19/21 3:41 PM) Pulse Rate [55-90 bpm] 68 bpm (02/19/21 3:41 PM) Body Mass Index [18.5-24.99] 31.98 *>HHI* (02/19/21 3:41 PM) Blood Pressure [90-138/55-84 mm Hg] 127/72 mm Hg (02/19/21 3:41 PM) Temperature [96.8-100.4 DegF] 98.6 DegF (02/19/21 3:41 PM) Blood pressure sites Arm, right (02/19/21 3:41 PM) Temperature Route Oral (02/19/21 3:41 PM) Social History Social History Type Response Smoking Status Never smoker; Tobacco user i n household: No entered on: 06/17/14 Sex
--- OUTSIDE RECORDS SUMMARY | 2022-10-07 13:56 | XMS_ITS | Continuity of Care Document ---
:1985 Author Organization [facility] [place] [facility] Address [address] [place] [address]- Care Team Providers Name Role Phone Sheila Donan MCCALL Primary Care Physician Encounter [facility] Date(s): 08/15/20 - 09/14/20 [facility] [place] [facility] [address] [place] [address]- Allergies, Adverse Reactions, Alerts Substance Reaction Severity [...] 10:52:00 EDT, Aerosol, Route to Pharmacy Electronically, [id number], [facility]... Start Date: 12/10/19 Status: Ordered Problem [...]
--- OUTSIDE RECORDS SUMMARY | 2022-10-07 13:56 | XMS_ITS | Continuity of Care Document ---
:1985 Author Organization [facility] Address [address] [place] [address]- Care Team Providers Name Role Phone Sheila Donna MCCALL Primary Care Physician Encounter [facility] [place] Date(s): 08/25/20 - 09/24/20 [facility] [address] [place] [id number] Attending Physician: Quyen Barrera Admitting Physician: Quyen [...] 10:52:00 EDT, Aerosol, Route to Pharmacy Electronically, [id number], [facility]... Start Date: 12/10/19 Status: Ordered Problem [...]
--- OUTSIDE RECORDS SUMMARY | 2022-10-07 13:56 | XMS_ITS | Continuity of Care Document ---
:1985 Author Organization [facility] Address [address] [place] [address]- Care Team Providers Name Role Phone Sheila Donna MCCALL Primary Care Physician Encounter [facility] [place] Date(s): 04/06/21 - 05/06/21 [facility] [address] [place], [place] [address] Attending Physician: Admtr, Quyen Admitting Physician: Admtr, [...] 10:52:00 EDT, Aerosol, Route to Pharmacy Electronically, [id number], [facility]... Start Date: 12/10/19 Status: OrderedMagic mouth wash Magic mouth wash, See Instructions, # 180 mL, Refills 3, Tot. Refills 3, Maintenance, swish and [id number] mouthwash Q4 hours as needed, 11/20/20 12:57:00 [...]
--- OUTSIDE RECORDS SUMMARY | 2022-10-07 13:56 | XMS_ITS | Continuity of Care Document ---
:1985 Author Organization [facility] Address [address] [place] [address]- Care Team Providers Name Role Phone Zander Muro MD Primary Care Physician Encounter [facility] Date(s): 12/06/19 - 01/05/20 [facility] [address] [place] [address]- [facility] Attending Physician: Quyen Barrera Admitting Physician: AdmtrQuyen Referring Physician: AdmtrQuyen Allergies, Adverse Reactions, Alerts [...] 10:52:00 EDT, Aerosol, Route to Pharmacy Electronically, [id number], [facility]... Start Date: 12/10/19 Status: Ordered Problem List Condition Effective Dates Status Health Status Informant [D]Functional heart murmur(Confirmed) Active Asthma(Confirmed) Active Back pain, chronic(Confirmed) Active Irritable bowel syndrome - mixed Active C/D(Confirmed) Plantar Wart(Confirmed) Active T12 compression fracture(Confirmed) Active Social History Social History Type Response Smoking Status Never smoker entered on: 04/15/18 Sex
--- OUTSIDE RECORDS SUMMARY | 2022-10-07 13:56 | XMS_ITS | Continuity of Care Document ---
:1985 Author Organization [facility] Address [address] [place] [address]- Care Team Providers Name Role Phone Sheila Donna MCCALL Primary Care Physician En[place] [facility] [place] Date(s): 02/26/21 - 03/28/21 [facility] [address] [place] [address]- Allergies, Adverse Reactions, Alerts Substance Reaction Severity [...] 10:52:00 EDT, Aerosol, Route to Pharmacy Electronically, [id number], [facility]... Start Date: 12/10/19 Status: OrderedMagic mouth wash Magic mouth wash, See Instructions, # 180 mL, Refills 3, Tot. Refills 3, Maintenance, swish and [id number] mouthwash Q4 hours as needed, 11/20/20 12:57:00 [...]
--- OUTSIDE RECORDS SUMMARY | 2022-10-07 13:56 | XMS_ITS | Continuity of Care Document ---
:1985 Author Organization [facility] Address [address] [place] [address]- Care Team Providers Name Role Phone Sheila Donna MCCALL Primary Care Physician Encounter [facility] Date(s): 08/31/20 - 09/30/20 [facility] [address] [place] [address]- Attending Physician: Quyen Barrera Admitting Physician: AdmtrQuyen [...] 10:52:00 EDT, Aerosol, Route to Pharmacy Electronically, [id number], [facility]... Start Date: 12/10/19 Status: Ordered Problem [...]
--- OUTSIDE RECORDS SUMMARY | 2022-10-07 13:56 | XMS_ITS | Continuity of Care Document ---
:1985 Author Organization [facility] Address [address] [place] [address]- Care Team Providers Name Role Phone Sheila Donna MCCALL Primary Care Physician Encounter [facility] [place] Date(s): 10/10/20 - 11/09/20 [facility] [address] [place] [address] Attending Physician: Quyen Barrera Admitting Physician: [...] 10:52:00 EDT, Aerosol, Route to Pharmacy Electronically, [id number], [facility]... Start Date: 12/10/19 Status: OrderedMagic mouth wash Magic mouth wash, See Instructions, # 180 mL, Refills 0, Tot. Refills 0, Maintenance, swish and [id number] mouthwash Q4 hours as needed, 10/30/20 11:08:00 [...]
[2022-10-07] MEDS: dexAMETHasone sod phosphate 10 MG/ML VIAL PO (14:19)
== END 2022-10-07 14:22 | disposition home or self-care (01) ==
PROVIDERS: Physician Assistant Medical; Emergency Provider Student in an Organized Health Care Education/Training Program; PCP Nurse Practitioner Family
DX: J02.0 Streptococcal pharyngitis (principal); Z79.899 Other long term (current) drug therapy
CPT/HCPCS: 36415; 87651; 99282; 99283; J1100

== ENCOUNTER 2024-01-10 09:09 | Outpatient (AMB) | payer OTHER, SELFPAY ==
[2024-01-10 09:10] VITALS: BP 118/80; PULSE 97; TEMP 36.9; O2SAT 98
--- NOTE | 2024-01-10 09:10 | AM.OFFWIN_ITS ---
Intake Vital Signs 01/10/24 09:10 Height 5 ft 9 in BMI Reason not done Patient refused/unable BP 118/80 Blood Pressure Location Rt brachial Position Sitting Pulse 97 Pulse Source Pulse Oximeter Temp 98.4 F Temp Source Oral Pulse Oximetry (%) 98 Intake Visit Reasons: EP sore throat, cough, fever Intake Note: pt is here for sore throat, cough, with fever Patient Tobacco Use Status: Never used Tobacco Allergies No Known Allergies Allergy (Verified 01/10/24 09:35) Medication List - Last Reconciled 01/10/24 by Kandice Almazan CNP omeprazole 40 mg PO DAILY Do you need a note to return to daycare/school/sports/work: Yes HPI HPI Comments History of Present Illness Details 38-year-old man presents to [facility] for [facility], complaining of sore throat, cough and fever x 3 days. He denies recent travel, known covid or sick contact. He has tried throat lozenges and warm salt water rinses which he reports burn his throat. He reports intermittent fever and chills, denies sinus pressure, headache, CP, SOB, dizziness, wheezing, changes in color of nasal discharge or sputum, he also denies abdominal pain, nausea, vomiting, changes in bowels or bladder. [facility] Social History Patient Tobacco Use Status: Never used Tobacco Review of Systems Const All systems reviewed & are unremarkable except as noted in HPI and below Reports as per HPI Physical Exam Vital Signs: Last Vital Signs Temp 98.4 F 01/10/24 09:10 Pulse 97 01/10/24 09:10 BP 118/80 01/10/24 09:10 Pulse Ox 98 01/10/24 09:10 Const Other: General: awake, alert, oriented. Answers questions appropriately. Fully engaged in examination. Skin: warm, dry, intact HEENT: TMs intact bilaterally, without erythema or exudate. Posterior pharynx with moderate erythema and exudate, bilateral enlarged and erythemateous tonsils left > right w/ tonsilloliths. Sclera without icterus or injection. Cardiac: External chest normal in appearance. Respiratory: Dry non productive cough, Lung sounds clear, no wheezes, rhonchi or stridor. Abdomen: Soft, non-tender, normoactive BS, without gross distension. Neurological: Oriented to person, place, time and situation. Thought process intact. Psychiatric: Appropriate mood and affect. Good judgment and insight. Neck Carotids: no bruits Results AMB Rapid Strep AMB Rapid Strep Negative Last Edit by Guzman Frias CMA on 01/10/24 09 :34 Results Reviewed Results Reviewed: Laboratory Last Values Strep Scn Rapid Clinic Negative 01/10/24 09:27 Assessment & Plan Assessment & Plan (1) Acute bacterial pharyngitis: Code(s): J02.8 - Acute pharyngitis due to other specified organisms; B96.89 - Other specified bacterial agents as the cause of diseases classified elsewhere Plan: This is a 38-year-old male seen today for complaint of sore throat, cough, and fever x3 days. although rapid strep test was negative, physical exam shows Posterior pharynx with moderate erythema and exudate, bilateral enlarged and erythemateous tonsils left > right w/ tonsilloliths. Will treat with amoxicillin 500 mg po bid x 7 days, encouraged to take w/ food to reduce GI upset. Encouraged to drink plenty of fluids, maintain hydration, and get plenty of rest. Encouraged to continue warm salt water gargles tid as tolerated. Work note provided. Instructed to return to office for worsening or unresolved symptoms or f/u with PCP Orders: Orders AMB Rapid Strep Screen Today Z13.9 - Encounter for screening, unspecified Medications: New amoxicillin this replaces Augmentin due to national shortage. 500 mg PO BID 14 caps 0RF 7 days B96.89 - Other specified bacterial agents as the cause of diseases classified elsewhere, J02.8 - Acute pharyngitis due to other specified organisms amoxicillin-pot clavulanate 875-125 mg 1 tab PO BID 14 tabs 0RF 7 days J03.90 - Acute tonsillitis, unspecified Coding Level of Care Code Est Pt Level 3 (37922) Diagnoses Acute bacterial pharyngitis J02.8; B96.89
== END 2024-01-10 09:42 | disposition home or self-care (01) ==
PROVIDERS: PCP Nurse Practitioner Family; Visit Provider Nurse Practitioner Acute Care
DX: J02.8 Acute pharyngitis due to other specified organisms (principal); B96.89 Other specified bacterial agents as the cause of diseases classified elsewhere
CPT/HCPCS: 87880; 99213

== ENCOUNTER 2024-05-05 09:20 | Outpatient (AMB) | payer OTHER, SELFPAY ==
[2024-05-05 09:47] VITALS: BP 130/68; PULSE 93; TEMP 37.7; O2SAT 99; BMI 31.5
--- NOTE | 2024-05-05 09:47 | MHC.OFFWIV ---
Intake Vital Signs 05/05/24 09:47 Height 5 ft 9 in Weight 213 lb BMI 31.5 BP 130/68 Blood Pressure Location Lt brachial Position Sitting Pulse 93 Pulse Source Pulse Oximeter Temp 99.8 F Temp Source Oral Pulse Oximetry (%) 99 Oxygen Delivery Method Room Air Intake Visit Reasons: EP sore thoat Intake Note: Pt is here today c/o sorethroat Patient Tobacco Use Status: Never used Tobacco Allergies No Known Allergies Allergy (Verified 05/05/24 09:48) HPI HPI Comments History of Present Illness Details Patient is a 38-year-old male complaining a sore throat for the last few days. He is also complaining of a subjective fever and swollen lymph nodes in his neck. He denies any cough, sinus pain or ear pain. He tells me many of his neighbors have been diagnosed with strep recently and he is concerned this could be what he has. [facility] Social History Patient Tobacco Use Status: Never used Tobacco Review of Systems Const All systems reviewed & are unremarkable except as noted in HPI and below Physical Exam Vital Signs: Last Vital Signs Temp 99.8 F 05/05/24 09:47 Pulse 93 05/05/24 09:47 BP 130/68 05/05/24 09:47 Pulse Ox 99 05/05/24 09:47 Oxygen Delivery Method Room Air 05/05/24 09:47 BMI result Body Mass Index 31.5 Const General: cooperative, healthy appearing, comfortable and no acute distress Orientation/consciousness: patient oriented x3 Limitations: no limitations HEENT Head: Yes normal to inspection Ears: hearing grossly normal bilaterally, external ears normal and TM's normal bilaterally General nose exam: Normal external nose present, Normal nares present and No nasal discharge present Face and sinus: Yes normal facial exam and Yes sinuses nontender Mouth: Normal oral and palatal mucosa present and moist mucous membranes Throat: Yes uvula midline, Yes abnormal tonsil (swollen and erythematous) and Yes posterior oropharynx abnormal (Erythema) Eyes General: appearance normal, both eyes and all related structures Neck Neck: Yes lymphadenopathy Resp Effort & Inspection: normal respiratory effort, able to speak in complete sentences, no respiratory distress, not tachypneic, no tripod positioning and no use of accessory muscles Skin General skin exam: no rashes or lesions noted Neuro General: patient oriented x3 Extrem General: Yes normal to inspection and Yes no clubbing, cyanosis or edema Results AMB Rapid Strep AMB Rapid Strep Positive Last Edit by Lucero Horton CMA on 05/05/24 10:01 Results Reviewed Results Reviewed: Laboratory Last Values Strep Scn Rapid Clinic Positive 05/05/24 09:56 Assessment & Plan Assessment & Plan (1) Acute bacterial pharyngitis: Code(s): J02.8 - Acute pharyngitis due to other specified organisms; B96.89 - Other specified bacterial agents as the cause of diseases classified elsewhere Plan: Rapid strep in office was positive. We will treat with liquid amoxicillin for comfort. Recommended cool liquids as well as ibuprofen for pain. Plan See above Orders: Orders AMB Rapid Strep Screen Today Z13.9 - Encounter for screening, unspecified Medications: New amoxicillin 500 mg (10 mL) PO BID 200 mL 0RF Coding Level of Care Code New Pt Level 3 (58936) Diagnoses Acute bacterial pharyngitis J02.8; B96.89
== END 2024-05-05 10:25 | disposition home or self-care (01) ==
PROVIDERS: PCP Nurse Practitioner Family; Visit Provider Physician Assistant
DX: J02.8 Acute pharyngitis due to other specified organisms (principal); B96.89 Other specified bacterial agents as the cause of diseases classified elsewhere; Z13.9 Encounter for screening, unspecified

== ENCOUNTER → 2024-05-05 09:20 | Outpatient (BNVA) | payer OTHER, SELFPAY | PROVIDERS: PCP Nurse Practitioner Family; Visit Provider Physician Assistant | DX: J02.8 Acute pharyngitis due to other specified organisms (principal); B96.89 Other specified bacterial agents as the cause of diseases classified elsewhere | CPT/HCPCS: 87880 ==